=== PATIENT | female | born 1975 | race Hispanic/Latino ===

== ENCOUNTER 2017-11-18 07:32 | Observation (INO) | payer OTHER ==
[2017-11-13 08:55] VITALS: BMI 19.0
[2017-11-18] MEDS ORDERED: Succinylcholine 200 mg/10 ml Inj IV ONE (07:48)
[2017-11-18] MEDS ORDERED: Midazolam 2 MG/2 ML VIAL ONE (07:48)
[2017-11-18] MEDS ORDERED: Propofol 10 mg/ml Inj (20 ML) ONE (07:48)
[2017-11-18] MEDS ORDERED: ePHEDrine 50 mg/ml Inj ONE (07:48)
[2017-11-18] MEDS ORDERED: Rocuronium 10 mg/ml (5 ml) ONE (07:48)
[2017-11-18] MEDS ORDERED: Phenylephrine 10 mg/ml Inj ONE (07:53)
[2017-11-18] MEDS ORDERED: Neostigmine 1:1000 (1 mg/ml) Inj ONE (07:53)
[2017-11-18] MEDS ORDERED: Bupivacaine HCl 0.5% PF (30 ml) Inj ONE (07:56)
[2017-11-18 08:51] LABS: BASO # 0.1 K/uL (0.0-0.2); BASO % 0.7 % (0.0-2.0); EOS # 0.1 K/uL (0.0-0.7); EOS % 1.1 % (0.0-4.0); LYMPH # 2.2 K/uL (1.0-4.3); LYMPH % 29.5 % (20.0-40.0); MEAN CELL VOLUME 89.4 fl (81.0-99.0); MEAN CORPUSCULAR HEMOGLOBIN 30.2 pg (27.0-31.0); MEAN CORPUSCULAR HGB CONC 33.8 g/dL (33.0-37.0); MEAN PLATELET VOLUME 9.6 fl (7.2-11.7); MONO # 0.5 K/uL (0.0-0.8); MONO % 7.3 % (0.0-10.0); NEUT # 4.5 K/uL (1.8-7.0); NEUT % 61.4 % (50.0-75.0); NRBC % 0.1 % (0.0-0.0); RBC 4.64 Mil/uL (3.80-5.20); RED CELL DISTRIBUTION WIDTH 12.9 % (11.5-14.5); WHITE BLOOD COUNT 7.4 K/uL (4.8-10.8)
[2017-11-18] MEDS ORDERED: Lactated Ringer's 1,000 ML IV ONE ×5 (09:00→11:48)
[2017-11-18 09:08] LABS: PROTHROMBIN TIME 11.2 Seconds (9.8-13.1)
[2017-11-18 09:10] LABS: PARTIAL THROMBOPLASTIN TIME 24.1 Seconds (25.6-37.1)
[2017-11-18] MEDS ORDERED: Dexamethasone 4 mg/1 ml ONE (10:48)
[2017-11-18] MEDS ORDERED: HYDROmorphone 1 mg/ml ISec IVP PRN (12:29)
[2017-11-18] MEDS ORDERED: Lactated Ringer's 1,000 ML IV SCH (12:30)
[2017-11-18] MEDS ORDERED: Benzocaine/Menthol (Cepacol) Lozenge PO PRN (20:51)
[2017-11-18] MEDS: oxyCODONE 10 mg Immediate Release Tab PO PRN (23:29)
[2017-11-19] MEDS: oxyCODONE 10 mg Immediate Release Tab PO PRN (07:31)
[2017-11-19 07:54] VITALS: RESP 20; O2SAT 97
[2017-11-19 08:30] VITALS: BP 121/72; PULSE 66; TEMP 99
--- NOTE | 2017-11-19 10:30 | CP.PCM.PN ---
Subjective - Date & Time of Evaluation Date of Evaluation: 11/19/17 Time of Evaluation: 07:30 - Subjective Subjective: Patient seen and examined at bedside comfortable. Pain well controlled. Able to get OOB to bathroom, void and eat without issues. No acute events overnight. Denies CP/SOB/N/V/D. Objective - Vital Signs/Intake and Output Vital Signs (last 24 hours): Temp Pulse Resp BP Pulse Ox 99 F 66 20 121/72 97 11/19/17 08:29 11/19/17 08:29 11/19/17 08:29 11/19/17 08:29 11/19/17 08:29 - Medications Medications: Current Medications Acetaminophen (Tylenol 325mg Tab) 650 mg PO Q6 [facility] Last Admin: 11/19/17 10:26 Dose: 650 mg Benzocaine/Menthol (Cepacol Sore Throat) 1 jerry PO Q3 PRN PRN Reason: Sore Throat Last Admin: 11/18/17 21:26 Dose: 1 jerry Hydromorphone HCl (Dilaudid) 2 mg IVP Q3H PRN PRN Reason: Pain, severe (8-10) Lactated Ringer's (Lactated Ringer's) 1,000 mls @ 100 mls/hr IV .Q10H [facility] Last Admin: 11/18/17 23:27 Dose: Not Given Ketorolac Tromethamine (Toradol) 30 mg IVP Q6H [facility] Last Admin: 11/19/17 05:53 Dose: 30 mg Ondansetron HCl (Zofran Inj) 4 mg IVP Q6 PRN PRN Reason: Nausea/Vomiting Oxycodone HCl (Oxycodone Immediate Release Tab) 10 mg PO Q6 PRN PRN Reason: Pain, moderate (4-7) Last Admin: 11/19/17 07:31 Dose: 10 mg - Labs Labs: 11/18/17 08:35 PT 11.2 Seconds (9.8-13.1) 11/18/17 08:35 INR 1.0 11/18/17 08:35 APTT 24.1 Seconds (25.6-37.1) L 11/18/17 08:35 - GI/Abdominal Exam Additional comments: Dressings CDI, mild tenderness secondary to surgery, no swelling, no ecchymosis , no masses, no drainage Assessment and Plan (1) Endometriosis Assessment & Plan: POD #1 s/p Davinci assisted endometriosis tissue removal -pain controlled -OOB -regular diet -stable for discharge -Rx in chart -f/u with Dr. Stephen within 2 weeks -above d/w Dr. Stephen in agreement Status: Acute
--- NOTE | 2017-11-20 10:22 | OP ---
PROCEDURE DATE: 11/18/2017 SURGEON: Chester Stephen MD SCRUMMASTER: Madi Malhotra MD ANESTHESIOLOGIST: Ramesh Pierson MD ANESTHETIC: General Endo PREOPERATIVE DIAGNOSES: 1. Incapacitating pelvic pain. 2. Incapacitating abdominal pain. 3. Abnormal uterine bleeding. 4. History of pelvic endometriosis. 5. History of previous failed medical surgical therapy. 6. History of severe endometriosis and pelvic adhesions. 7. Gastrointestinal and genitourinary symptoms. 8. Rule out interstitial cystitis. 9. Adenomyosis. POSTOPERATIVE DIAGNOSES: 1. Incapacitating pelvic pain. 2. Incapacitating abdominal pain. 3. Abnormal uterine bleeding. 4. History of pelvic endometriosis. 5. History of previous failed medical surgical therapy. 6. History of severe endometriosis and pelvic adhesions. 7. Gastrointestinal and genitourinary symptoms. 8. No evidence of interstitial cystitis. 9. Adenomyosis. 10. Severe pelvic endometriosis. 11. Ovarian adhesions. 12. Bowel adhesions. 13. [id number] Endometriosis 14. Mild bilateral hydroureters. OPERATION PERFORMED: 1. Examination under anesthesia. 2. Video_assisted hysteroscopy. 3. Cystoscopy. 4. Bilateral ureteral catheterization and injection of IC-Green dye 5. Robotic da Sunshine laparoscopy. 6. Bilateral ureterolysis. 7. Bilateral salpingo_ovariolysis. 8. Multiple peritoneal biopsies and excision of endometriosis. 9. Treatment of endometriosis. Dr. Malhotra from General Surgery was consulted to perform and excision of perirectal and he will dictate that separately. COMPLICATIONS: None. SAMPLES: Sent to pathology DRAINS: ESTIMATED BLOOD LOSS: Minimal. FINDINGS: Genitalia: normal, external genitalia, cervix normal without lesions or polyps. Hysteroscopy showed a normal cavity with no lesions of fibroids Cystoscopy was performed to rule out endometriosis of bladder mucosa and also interstitial cystitis, also injury. The bladder was normal with no evidence of stone, trigonitis or cystitis. Positive jet flow visualized in both ureters. Laparoscopy was normal, gallbladder was normal, liver edges appeared to be normal. Ascending colon and transverse were normal. The appendix appeared to be abnormal with both fibrosis and thickening. There was evidence of severe adhesions, fibrosis and endometriosis of the rectovaginal septum and attachment of the bowel to the posterior aspect of the uterus and to both the right and left adnexa. Both ovaries were severely attached to the posterior aspect of the ureters with endometriosis and adhesions. Fallopian tubes appeared to have some inflammatory changes of adhesions, but overall appeared to be patent . Both ovaries appeared to be involved with scar. There was also evidence of endometriosis of the rectovaginal septum in right and left perirectal areas and fibrosis of both ureters, posterior cul_de_sac and anterior cul_de_sac. 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 There was also evidence of mild bilateral hydroureters. CONSENT: The patient had been thoroughly evaluated and counseled regarding pros and cons of the procedure, the reasonable alternative, and the possible complications. She understood and accepted the risks involved. Appropriate literature was provided to the patient. The patient was in understanding that given her history and presurgical exam, she knows that she was a high risk and average patient. She accepted all the risks involved and all the questions had been answered to her satisfaction. DESCRIPTION OF PROCEDURE: Initiation of the case: After adequate anesthesia was obtained, the patient was placed in the dorsal lithotomy position with extreme care of placement of the patient without hyperextension or hyperflexing the hips. At this point, the patient was prepped and draped, the surgeon was gowned and gloved. A time- out was taken according to the hospital procedure and the procedure was started. At this point, we performed the cystoscopy and bilateral ureteral catheterization. At this point we performed cystoscopy: A cystoscope was inserted into the bladder, under direct visualization and the bladder was visualized. The bladder was free of lesions, tumors. There was no evidence of interstitial cystitis, and there was only a mild amount of trigonitis. At this point, both ureters were identified and appeared to be in normal anatomical position. At this point, utilizing an open-ended 5-Lebanese catheter, the left ureter was catheterized all the way to the distal ureter, and a 5 mL of IC-Green were injected into the distal ureter. Similarly, on the contralateral ureter, the ureter was catheterized all the way to the distal ureter, and a 5 mL of IC-Green were injected into the distal ureter. At this point, the stents were removed, and the hysteroscope was removed and a 16- Lebanese Holder was placed into the bladder. At this point, we proceeded with a hysteroscopy: A speculum was placed in the vagina, and the anterior lip of the cervix was grasped. The cervix was dilated and a hysteroscope was inserted into the cavity. The cavity appeared to be of normal size,with no fibroids or polyps. At this point, we proceeded with placement of trocars and docking of the Da Sunshine Xi robot The surgeons were re-gowned and re-gloved, and an open laparoscopy was performed by making an incision below the umbilicus, and the fascia was incised , and the peritoneum was entered in the blunt fashion. The cannula was inserted and the abdomen was insufflated, and under direct visualization 3 additional ports were inserted, left upper quadrant, left mid quadrant and right upper quadrant. At this point, the da Sunshine Xi robot was brought into the field and docked, and the instruments were inserted under direct visualization. With extreme care not to injure the bowel or any other area. As per the dictation, the upper abdomen appeared to be normal with no evidence of any lesions. The pelvis had the findings described above, which included significant adhesions, fibrosis of the posterior cul-de-sac, significant endometriosis with deep endometriosis nodules. Both ovary adherent to both the ovarian fossas and the posterior aspect of the uterus with significant inflammatory changes. Additionally there were endometriosis nodules on the sigmoid. At this point, we proceeded with the left ureterolysis. The ureter appeared to dilated and it was clearly identified utilizing fluorescent technology. An incision was made on the peritoneum at the top of the pelvic brim, and incision was then carried down all the way opening the peritoneum and all the way down from the pelvic brim all the way down to the ovarian fossa extending the incision below the ovary. It was a progressive dissection where the ureter was progressively lateralized and the peritoneum medialized, thus freeing the ureter all the way down to the crossing of the uterine vessels. After this was done and the ureter was freed and lateralized and a large area of peritoneum, which had been opened up was excised and sent to pathology. At this point, after ureter had been identified, we were able to elevate the ovary and dissect it from the pelvic side wall in the ovarian fossa At this point, we proceeded with the left ovariolysis. The ovary was gently dissected and elevated off the ovarian fossa and area of fibrosis of endometriosis were exposed. At this point, we proceeded with the right ureterolysis. The ureter was identified and again utilizing florescent technology, the retroperitoneal space was entered and a full dissection was performed entering the retroperitoneal space and dissecting the ureter, removing the ureter laterally and the peritoneum medially. A full dissection was performed all the way down to the ovarian fossa, on the crossing of the uterine arteries. A large area of peritoneum containing endometriosis was also dissected and sent to Pathology. At this point, we proceeded with a right ovariolysis. The ovary was progressively elevated, areas of deep endometriosis and superficial endometriosis were dissected out and the ovary was finally elevated. At this point, we proceeded with a treatment of endometriosis and excision of endometriosis. On the left hand side, a large area of peritoneum, where containing endometriosis was excised in the ovarian fossa with the upper margin of the excision at the utero_ovarian ligament all the way down to the uterosacral ligament. Large areas of fibrosis were identified in posterior cul-de-sac and the rectovaginal space was affected with endometriosis and severe fibrosis. The rectovaginal area was then dissected and the space was opened, and we were able to dissect the rectum away from the posterior aspect of the cervix. Additional areas of endometriosis were dissected from the posterior aspect of the Uterus. There was significand endometriosis in the left and right perirectal space. After the excision most of the cul de sac was excised. At this point, we proceeded with excision of the endometriosis on the right hand side where similarly in a full excision of endometriosis was performed by performing incision from starting at the right utero_ovarian ligament all the way down to the right uterosacral ligament. At this point, Dr. Malhotra from General Surgery was called in and he performed rectal endometriosis excision anf the console was handed to him . he will dictate this separately. At this point, it was checked for hemostasis and appeared to be excellent. All the endometriosis had been excised. At this point, we performed the ablation of inflamed peritoneum, utilizing the J_plasma device. There were inflammatory areas in the posterior aspect of the uterus, which were not endometriotic, but they were purely inflammatory and these were not excisable, as they were not endometriotic. Therefore, we proceeded with ablation of such area utilizing the J plasma. Once this was done, it was checked for hemostasis and appeared to be excellent. The da Sunshine Xi robot was removed. The abdomen desufflated. The instruments were removed. The incisions were closed in layers with 0 PDS for the fascia and 4-0 Monocryl for the skin. The patient was awakened up and taken to recovery room in excellent condition. MD LORNE CorreaD
--- NOTE | 2017-11-20 13:17 | PCM.OP ---
Operative Report - Operative Report Date of Surgery/Procedure: 11/18/17 Time of Surgery/Procedure: 08:00 Surgeon: Dr. Madi Malhotra Anesthesia/Sedation: Dr. Chester Stephen Pre-Operative Diagnosis: abdominal pain and endometriosis Post-Operative Diagnosis: same Indication for Surgery: as above Operative Findings: as above Procedure/Operation Description: 1-Excision perirectal endometriosis (times two) . 2-Excision sigmoid colon wall. Breif History: This 42 year old woman was aldready brought to the operatong room by Dr. Stephen when he requested intraoperative general surgery consultation. Description of the Procdure: The parient had alredy been brought to the operating room by Dr. Stephen (separate dictation). After taking control of the robotic console the first two rectal lesions were incised circumferetnailly with electrocaytery and with blunt and sharp disssection were excised en-bloc and snet separately to pathology. The sigmoid lesion was removged in a similar fashion and the defect was closed with multiple interrupted 3-0 vicryl sutures. The operation was then turned ocer to Dr. Stephen (separate dictation). Estimated Blood Loss: 7 cc Complications: none Specimen: 1-perirectal endometriosis (times two). 2-sigmoid colon Discharge & Condition: stable
== END 2017-11-19 11:37 | disposition home or self-care (01) ==
LOC: H.OPSURG 07:32 → H.MEDSURG1 12:29
PROVIDERS: ADMIT Obstetrics & Gynecology Reproductive Endocrinology; ATTEND Obstetrics & Gynecology Reproductive Endocrinology
DX: N80.0 Endometriosis of uterus (principal); N80.1 Endometriosis of ovary; N80.4 Endometriosis of rectovaginal septum and vagina; N93.9 Abnormal uterine and vaginal bleeding, unspecified; N13.4 Hydroureter; N80.5 Endometriosis of intestine; N80.3 Endometriosis of pelvic peritoneum; N73.6 Female pelvic peritoneal adhesions (postinfective); Q51.2 Other doubling of uterus; N13.5 Crossing vessel and stricture of ureter without hydronephrosis
CPT/HCPCS: 44110; 45171; 49203; 49999; 58560; 58999; 85025; 85610; 85730; 86850; 86900; 88305; C1729; G0378; J0131; J0330; J0690; J1100; J1170; J1885; J2001; J2250; J2370; J2405; J2704; J2710; J3010; J7030; J7120